=== PATIENT | female | born 1930 | race Asian ===

== ENCOUNTER 2016-12-13 12:52 | Inpatient (IN) | payer MEDICARE, BC ==
[~2016-12-13] VITALS: Ht 144.8 cm; Wt 56.0 kg
[~2016-12-13 12:52] MED LIST: AMLO-147 PO; CLC1500T PO; LOSA50TA6 PO; OMEP20CA16 PO
[2016-12-13] MEDS ORDERED: ASPI-664 PO (14:12)
[2016-12-13] MEDS ORDERED: CRES10 PO (14:12)
[2016-12-13] MEDS ORDERED: ATOR40TA68 PO (14:13)
[2016-12-13] MEDS ORDERED: CLC1500T PO (14:14)
[2016-12-13] MEDS ORDERED: SODIUM CHLORIDE 0.9% 1L BAG IV* STA (15:09)
[2016-12-13] MEDS ORDERED: CEFTRIAXONE 1 GM/50 ML (PMX) 50 ML IVPB STA (15:09)
[2016-12-13] MEDS ORDERED: ONDANSETRON 4 MG INJ IV STA (15:18)
[2016-12-13] MEDS ORDERED: morphine 4 MG/ML VIAL IV STA (15:18)
--- NOTE | 2016-12-13 15:18 | ERA ---
ER Documentation Chief Complaint Date/Time DATE: 12/13/16 TIME: 15:16 Chief Complaint lower back pain x 1 week , rt shoulder pain , rt leg pain , chills HPI Patient is an 86-year-old female who presents with a week and a half of right sided back pain gradual onset, constant, moderate and worsening over time. Patient was initially prescribed Tylenol by her PMD, but the pain did not improve. The pain spread to her upper back. She was then prescribed tramadol, but this also did not cause any improvement. Patient denies fevers, dysuria, hematuria, abdominal pain, vomiting. Patient reports mild nonproductive cough. No chest pain or shortness of breath. Patient denies trauma. Patient states that pain also radiates to the right leg. She denies leg numbness or weakness. ROS All systems reviewed and are negative except as per history of present illness. Medications Home Meds Reported Medications Calcium Carbonate* (Caltrate-600*) 600 MG Calcium Tab, 600 MG PO DAILY, TAB (1500 mg Calcium Carbonate) 12/13/16 Atorvastatin* (Atorvastatin*) 40 Mg Tablet, 40 MG PO QHS, #30 TAB 12/13/16 Aspirin (Low Dose Aspirin) 81 Mg Tablet.dr, 81 MG PO DAILY, #30 TAB 12/13/16 Omeprazole* (Omeprazole*) 20 Mg Capsule.dr, 20 MG PO BID, #60 CAP 11/06/15 Losartan Potassium* (Losartan Potassium*) 50 Mg Tablet, 50 MG PO DAILY, TAB 11/06/15 Amlodipine Besylate* (Amlodipine Besylate*) 10 Mg Tablet, 10 MG PO DAILY, #30 TAB 11/06/15 Discontinued Reported Medications Rosuvastatin Calcium* (Crestor*) 10 Mg Tablet, 10 MG PO QHS, #30 TAB 12/13/16 Calcium Carbonate* (Caltrate-600*) 600 MG Calcium Tab, 600 MG PO DAILY, TAB (1500 mg Calcium Carbonate) 11/06/15 Allergies Allergies: Coded Allergies: No Known Allergy (Verified , 12/13/16) PMhx/Soc Past medical history: Prediabetes, hypertension, hyperlipidemia, osteoporosis Past surgical history: Bilateral leg ORIF Social history: Denies tobacco or alcohol per History of Surgery: Yes (ORIF x 2) Anesthesia Reaction: No Hx Neurological Disorder: No Hx Respiratory Disorders: No Hx Cardiac Disorders: Yes (HTN) Hx Psychiatric Problems: No Hx Miscellaneous Medical Probl: Yes (DM) Hx Alcohol Use: No Hx Substance Use: No Hx Tobacco Use: No Smoking Status: Never smoker FmHx Family History: No coronary disease, No diabetes Physical Exam Vitals Vital Signs Date Time Temp Pulse Resp B/P Pulse Ox O2 Delivery O2 Flow Rate FiO2 12/13/16 19:00 87 18 112/50 93 Nasal Cannula 2.0 12/13/16 17:32 78 23 114/54 97 Nasal Cannula 2.0 12/13/16 15:57 102.5 91 26 110/74 97 Nasal Cannula 2.0 12/13/16 15:00 Nasal Cannula 2 12/13/16 13:56 105 18 139/58 92 Room Air 12/13/16 12:56 103.1 109 18 155/67 97 Physical Exam Const: Alert, appears in moderate pain Head: Atraumatic Eyes: Normal Conjunctiva, no pallor, no icterus ENT: Normal External Ears, Nose and Mouth. Neck: Full range of motion..~ No meningismus., No JVD Resp: Clear to auscultation bilaterally, no wheezes, no rales Cardio: Regular rate and rhythm, no murmurs Abd: Soft, tender in the right lower quadrant, no rebound, no guarding non distended. Normal bowel sounds Skin: No petechiae or rashes Back: No midline or CVA tenderness, right paraspinal tenderness in the low thoracic and high lumbar region. Ext: No cyanosis, or edema Neur: Awake and alert, cranial nerves II through XII intact bilaterally, patient moves and feels 4 extremities appropriately. Psych: Normal Mood and Affect Result Diagram: 12/13/16 1500 12/13/16 1500 Results 24 hrs Laboratory Tests Test 12/13/16 15:00 12/13/16 15:15 12/13/16 17:15 12/13/16 19:12 White Blood Count 9.810^3/ul Red Blood Count 3.8910^6/ul Hemoglobin 11.5g/dl Hematocrit 34.8% Mean Corpuscular Volume 89.5fl Mean Corpuscular Hemoglobin 29.6pg Mean Corpuscular Hemoglobin Concent 33.0g/dl Red Cell Distribution Width 11.9% Platelet Count 48309^3/UL Mean Platelet Volume 8.8fl Neutrophils % 74.4% Lymphocytes % 12.0% Monocytes % 12.3% Eosinophils % 0.1% Basophils % 0.3% Nucleated Red Blood Cells % 0.0/100WBC Neutrophils # 7.310^3/ul Lymphocytes # 1.210^3/ul Monocytes # 1.210^3/ul Eosinophils # 0.010^3/ul Basophils # 0.010^3/ul Nucleated Red Blood Cells # 0.010^3/ul Prothrombin Time 13.6Sec Prothrombin Time Ratio 1.1 INR International Normalized Ratio 1.04 Activated Partial Thromboplast Time 43.7Sec Urine Color YELLOW Urine Clarity CLEAR Urine pH 6.0 Urine Specific [place] 1.015 Urine Ketones NEGATIVE Urine Nitrite NEGATIVE Urine Bilirubin NEGATIVE Urine Urobilinogen 0.2 E.U./dL Urine Leukocyte Esterase TRACE Urine Microscopic RBC 2-5/HPF Urine Microscopic WBC 0-2/HPF Urine Squamous Epithelial Cells FEW Urine Bacteria FEW Urine Hemoglobin 1+ Urine Glucose NEGATIVE% Urine Total Protein TRACE Sodium Level 130mmol/L Potassium Level 4.7mmol/L Chloride Level 96mmol/L Carbon Dioxide Level 26mmol/L Anion Gap 13 Blood Urea Nitrogen 12mg/dl Creatinine 0.83mg/dl Glucose Level 143mg/dl Calcium Level 8.9mg/dl Total Bilirubin 0.2mg/dl Direct Bilirubin 0.00mg/dl Indirect Bilirubin 0.2mg/dl Aspartate Amino Transf (AST/SGOT) 69IU/L Alanine Aminotransferase (ALT/SGPT) 102IU/L Alkaline Phosphatase 282IU/L Troponin I < 0.012ng/ml Total Protein 7.4g/dl Albumin 3.7g/dl Globulin 3.70g/dl Albumin/Globulin Ratio 1.00 Lactic Acid Level 3.5mmol/L 1.1mmol/L 0.5mmol/L Current Medications Medications (Trade) Dose Ordered Sig/Selena Route PRN Reason Start Time Stop Time Status Last Admin Dose Admin Sodium Chloride 1740 ml 1,740 ml BOLUS OVER 2 HOURS STAT IV* 12/13/16 15:09 12/13/16 15:11 DC 12/13/16 15:48 Ceftriaxone Sodium (Rocephin) 50 ml @ 100 mls/hr ONCE STAT IVPB 12/13/16 15:09 12/13/16 15:38 DC 12/13/16 15:48 Morphine Sulfate (morphine) 4 mg ONCE STAT IV 5/13/17 15:18 12/13/16 15:19 DC 12/13/16 15:48 Ondansetron HCl (Zofran Inj) 4 mg ONCE STAT IV 12/13/16 15:18 12/13/16 15:19 DC 12/13/16 15:48 Acetaminophen (Tylenol Tab) 650 mg ONCE ONCE PO 12/13/16 16:00 12/13/16 16:01 DC 12/13/16 16:05 IV Flush 10 ml 10 ml STK-MED ONCE .ROUTE 12/13/16 17:10 12/13/16 17:11 DC Sodium Chloride (NS) 100 ml @ ud STK-MED ONCE .ROUTE 12/13/16 17:10 12/13/16 17:11 DC Iohexol (Omnipaque 300mg/ ml) 150 ml STK-MED ONCE .ROUTE 12/13/16 17:10 12/13/16 17:11 DC IV Flush 10 ml 10 ml STK-MED ONCE .ROUTE 12/13/16 17:20 12/13/16 17:21 DC 12/13/16 17:24 Sodium Chloride (NS) 100 ml @ ud STK-MED ONCE .ROUTE 12/13/16 17:20 12/13/16 17:21 DC 12/13/16 17:25 Iodixanol (Visipaque Locm) 100 ml STK-MED ONCE .ROUTE 12/13/16 17:20 12/13/16 17:21 DC 12/13/16 17:25 Vancomycin HCl (Vanco Iv Per Pharmacy) VANCOMYCIN PER PHARMACY PER PROTOCOL XX 12/13/16 19:30 Ondansetron HCl (Zofran Inj) 4 mg ER BRIDGE PRN IV NAUSEA AND/OR VOMITING 12/13/16 19:30 12/14/16 19:29 Acetaminophen 650 mg 650 mg ER BRIDGE PRN PO MILD PAIN/FEVER 12/13/16 19:30 12/14/16 19:29 Vancomycin HCl (Vancocin) 250 ml @ 125 mls/hr ONCE IVPB 12/13/16 20:00 12/13/16 21:59 Procedures/MDM EKG read by me: Time 1538, rate 97 Rhythm: Normal sinus [place]: Normal Intervals: Normal ST-T waves: no ischemic changes Ectopy: No Q-waves: No Impression: No evidence of ischemia or arrhythmia MDM: Patient is an 86-year-old female who presents with high fever to 103.1. Symptom [place], she reports 1-1/2 weeks of right-sided low back pain that is now extending up to her upper back and radiates down into her right leg. There is no pain with ranging of her right hip, no signs of soft tissue infection or shingles. She has no neurological deficit or symptoms in the right leg. A CT scan of the abdomen and pelvis shows no evidence of intra-abdominal infection, and shows incidental finding of left-sided ovarian mass, associated with the ovarian vein. UA is negative for UTI, chest x-ray shows no pneumonia. I have low suspicion for spinal abscess. The patient's pain is significantly improved on reassessment. Patient has no heart murmur. There are no meningeal signs. There are no significant acute symptoms to suggest an infectious source, but lactic acid is elevated, so I will admit the patient for further septic workup. The patient was given IV antibiotics, and blood and urine cultures were sent. The patient's lactic acid improved with fluids. I discussed the case with Dr. Hernandez, who will admit the patient. Departure Diagnosis: Primary Impression: Sepsis Qualified Code: A41.9 - Sepsis, due to unspecified organism Additional Impressions: Back pain Qualified Code: M54.41 - Chronic right-sided low back pain with right-sided sciatica Ovarian mass, left Condition: Stable SOCO PEDROZA MD December 13, 2016 15:18
[2016-12-13 15:27] LABS: ADD SCAN DIFF NO
[2016-12-13 15:31] LABS: BASOPHILS % 0.3 % (0.0-2.0); EOSINOPHILS % 0.1 % (0.0-7.0); HEMATOCRIT 34.8 % (37.0-47.0); HEMOGLOBIN 11.5 g/dl (12.0-16.0); LYMPHOCYTES # 1.2 10^3/ul (0.8-2.9); MEAN CORPUSCULAR HEMOGLOBIN 29.6 pg (29.0-33.0); MEAN CORPUSCULAR VOLUME 89.5 fl (82.0-101.0); MEAN PLATELET VOLUME 8.8 fl (7.4-10.4); MONOCYTE # 1.2 10^3/ul (0.3-0.9); MONOCYTES % 12.3 % (0.0-11.0); NEUTROPHIL # 7.3 10^3/ul (1.6-7.5); NEUTROPHILS % 74.4 % (39.0-77.0); PLATELET COUNT 301 10^3/UL (140-415); RED BLOOD COUNT 3.89 10^6/ul (4.20-5.40); RED CELL DISTRIBUTION WIDTH 11.9 % (11.5-14.5); WHITE BLOOD COUNT 9.8 10^3/ul (4.8-10.8)
[2016-12-13 15:37] LABS: ADD UMIC YES; URINE BILIRUBIN (Dip) NEGATIVE (NEGATIVE); URINE BLOOD (Dip) 1+ (NEGATIVE); URINE COLOR YELLOW (YELLOW); URINE GLUCOSE (Dip) NEGATIVE (NEGATIVE); URINE KETONES (Dip) NEGATIVE (NEGATIVE); URINE LEUKOCYTE ESTERASE (Dip) TRACE (NEGATIVE); URINE NITRITE (Dip) NEGATIVE (NEGATIVE); URINE TOTAL PROTEIN (Dip) TRACE (NEGATIVE); URINE UROBILINOGEN (Dip) 0.2 E.U./dL (0.1-1.0)
[2016-12-13 15:45] LABS: BACTERIA,URINE FEW; SQUAMOUS EPITHELIAL CELL,UR FEW
--- NOTE | 2016-12-13 15:47 | RADRPT ---
PROCEDURE: XR Chest. CLINICAL INDICATION: Sepsis TECHNIQUE: Single frontal chest x-ray. COMPARISON: 11/09/2015 FINDINGS: No acute infiltrate, pleural effusion or pneumothorax is identified. Cardiomediastinal silhouette i s within normal limits. Aortic atherosclerotic calcification is noted. The osseous structures are remarkable for degenerative spondylosis of the spine. IMPRESSION: 1. No evidence of acute cardiopulmonary process. 2. Aortic atherosclerosis. RPTAT: QQ .Kofi Laws MD, MD Date Time Electronically viewed and signed by .Kofi Laws MD, MD on 12/13/2016 15:47 .R/
[2016-12-13 15:56] LABS: INR 1.04; PROTIME 13.6 Sec (12.2-14.2); PT RATIO 1.1
[2016-12-13 15:57] LABS: PARTIAL THROMBOPLASTIN TIME 43.7 Sec (25.0-35.0)
[2016-12-13 15:59] LABS: ALANINE AMINOTRANSFERASE 102 IU/L (13-69); ALBUMIN 3.7 g/dl (3.3-4.9); ALKALINE PHOSPHATASE 282 IU/L (42-121); ANION GAP 13 (8-16); ASPARTATE AMINO TRANSFERASE 69 IU/L (15-46); BILIRUBIN,INDIRECT 0.2 mg/dl (0-1.1); BILIRUBIN,TOTAL 0.2 mg/dl (0.2-1.3); BLOOD UREA NITROGEN 12 mg/dl (7-20); CALCIUM 8.9 mg/dl (8.4-10.2); CARBON DIOXIDE 26 mmol/L (21-31); CHLORIDE 96 mmol/L (97-110); CREATININE 0.83 mg/dl (0.44-1.00); GLUCOSE 143 mg/dl (70-220); POTASSIUM 4.7 mmol/L (3.5-5.1); SODIUM 130 mmol/L (135-144); TOTAL PROTEIN 7.4 g/dl (6.1-8.1)
[2016-12-13] MEDS ORDERED: ACETAMINOPHEN 325 MG TAB PO ONE (16:00)
[2016-12-13 16:12] LABS: TROPONIN-I < 0.012 ng/ml (0.00-0.12)
[2016-12-13] MEDS ORDERED: IOHEXOL 300MG/ML 150 ML BTL ONE (17:10)
[2016-12-13] MEDS ORDERED: SOD CHLORIDE 0.9% 100 ML ONE ×2 (17:10→17:20)
[2016-12-13] MEDS ORDERED: IODIXANOL LOCM 100 ML BTL ONE (17:20)
--- NOTE | 2016-12-13 17:45 | RADRPT ---
PROCEDURE: CT Abdomen and Pelvis with contrast. CLINICAL INDICATION: Back and abdominal pain, sepsis TECHNIQUE: CT of the abdomen and pelvis was performed on a multi-detector scanner following the un complicated IV administration of 100 cc of Omnipaque 300. Coronal and sagittal images were reformat kinsey from the axial data set. One or more of the following dose reduction techniques were used: auto mated exposure control, adjustment of the mA and/or kV according to patient size, use of iterative reconstruction technique. CTDI = 6.32 mGy. DLP = 325.22 mGy-cm. COMPARISON: MRA abdomen, 01/15/2011 FINDINGS: CT abdomen: Trace right pleural fluid and mild bibasilar atelectasis are noted. There is stable mild cardiomega ly, without pericardial effusion. Coronary arterial calcifications are noted. Multiple benign hepa tic cysts are identified measuring up to 11 cm, similar in appearance to prior MRI. Gallbladder is surgically absent. Biliary tree, pancreas, spleen and adrenal glands are unremarkable. Bilateral b enign renal cysts are identified measuring up to 5.7 cm on the right, also grossly stable over time. 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 Nonobstructive left renal calculus is noted, without ureterolithiasis or obstructive uropathy . The stomach is grossly unremarkable. There is no abdominal aortic aneurysm or dissection. Aortic vascular calcifications are present. T here is no retroperitoneal lymphadenopathy. The max hepatis region is clear. Fat-containing umbi lical hernia is noted, without incarceration. CT pelvis: No bowel obstruction, free intraperitoneal air or abscess is identified. Scattered colonic divertic nano are seen without diverticulitis. The appendix is well visualized and normal. There is no colit is. 4.7 cm heterogeneously enhancing mass is identified along the approximate course of the left ov fariba vein (3-101), previously measuring 2.1 cm. Urinary bladder is grossly unremarkable. No pelvic free fluid or lymphadenopathy is identified. The surrounding osseous structures are remarkable for degenerative spondylosis of the spine. No ost eolytic or osteoblastic lesion is detected. IMPRESSION: 1. Heterogeneously enhancing 4.7 cm mass is seen along the approximate course of the left ovarian v ein, significantly increased in size when compared to the prior MRI from 2010, concerning for neopla sm. Consider surgical consultation. 2. There is stable mild cardiomegaly. Coronary arterial and aortoiliac atherosclerotic calcificati ons are present. 3. Multiple benign renal and hepatic cysts are identified measuring up to 11 cm in the liver, simil ar in appearance to the prior MRI. 4. Bilateral benign renal angiomyolipomas are also again noted, as above, and also unchanged. 5. Gallbladder is surgically absent. 6. Nonobstructive left renal calculus is seen, without ureterolithiasis or obstructive uropathy. 7. Fat-containing umbilical hernia is noted, without incarceration. 8. There is trace right pleural fluid and mild bibasilar atelectasis. RPTAT: QQ .Kofi Laws MD, MD Date Time Electronically viewed and signed by .Kofi Laws MD, on 12/13/2016 17:44 .R/
[2016-12-13] MEDS ORDERED: VANCOMYCIN IV PER PHARMACY XX SCH (19:30)
[2016-12-13] MEDS ORDERED: ACETAMINOPHEN 325 MG TAB PO PRN (19:30)
[2016-12-13] MEDS ORDERED: ONDANSETRON 4 MG INJ IV PRN (19:30)
[2016-12-13 20:00] VITALS: BP 130/60; RESP 20
[2016-12-13] MEDS ORDERED: VANCOMYCIN 1 GM in NS 250 ML IVPB SCH (20:00)
[2016-12-13 20:14] VITALS: TEMP 99.9
[2016-12-13 20:35] VITALS: PULSE 97
[2016-12-13 21:30] VITALS: Ht 144.8 cm; Wt 56.0 kg
[2016-12-14] VITALS (12 sets, daily range): BP systolic 101–135; BP diastolic 52–81; PULSE 76–89; RESP 17–20
[2016-12-14] MEDS ORDERED: VANCOMYCIN IV PER PHARMACY XX SCH (09:00)
[2016-12-14] MEDS: ASPIRIN (EC) 81 MG TAB PO SCH (09:31)
[2016-12-14] MEDS: AMLODIPINE 10 MG TAB PO SCH (09:32)
[2016-12-14] MEDS: LOSARTAN 50 MG TAB PO SCH (09:32)
[2016-12-14] MEDS: CEFTRIAXONE 1 GM/50 ML (PMX) 50 ML IVPB SCH (10:25)
[2016-12-14 10:27] LABS: ADD SCAN DIFF NO
[2016-12-14 10:30] LABS: BASOPHILS % 0.3 % (0.0-2.0); EOSINOPHILS % 0.2 % (0.0-7.0); HEMATOCRIT 33.9 % (37.0-47.0); HEMOGLOBIN 11.2 g/dl (12.0-16.0); LYMPHOCYTES # 1.2 10^3/ul (0.8-2.9); LYMPHOCYTES % 12.6 % (15.0-51.0); MEAN CORPUSCULAR HEMOGLOBIN 29.9 pg (29.0-33.0); MEAN CORPUSCULAR VOLUME 90.4 fl (82.0-101.0); MEAN PLATELET VOLUME 8.9 fl (7.4-10.4); MONOCYTE # 1.2 10^3/ul (0.3-0.9); MONOCYTES % 12.9 % (0.0-11.0); NEUTROPHIL # 6.9 10^3/ul (1.6-7.5); NEUTROPHILS % 73.4 % (39.0-77.0); PLATELET COUNT 285 10^3/UL (140-415); RED BLOOD COUNT 3.75 10^6/ul (4.20-5.40); RED CELL DISTRIBUTION WIDTH 11.9 % (11.5-14.5); WHITE BLOOD COUNT 9.4 10^3/ul (4.8-10.8)
[2016-12-14 10:44] LABS: ALBUMIN 3.4 g/dl (3.3-4.9); POTASSIUM 4.9 mmol/L (3.5-5.1)
[2016-12-14 10:46] LABS: CREATININE 0.83 mg/dl (0.44-1.00)
[2016-12-14 10:47] LABS: ALBUMIN/GLOBULIN RATIO 0.89; BILIRUBIN,INDIRECT 0.4 mg/dl (0-1.1); BILIRUBIN,TOTAL 0.4 mg/dl (0.2-1.3); TOTAL PROTEIN 7.2 g/dl (6.1-8.1)
[2016-12-14 10:48] LABS: CALCIUM 8.7 mg/dl (8.4-10.2)
[2016-12-14] MEDS: VANCOMYCIN 750 MG in SOD CHLORIDE 0.9% 150 ML IVPB SCH (11:24)
[2016-12-14] MEDS: ACETAMINOPHEN 325 MG TAB PO PRN (12:09)
[2016-12-14] MEDS ORDERED: ONDANSETRON 4 MG INJ IV PRN (12:30)
[2016-12-14] MEDS ORDERED: SOD CHLORIDE 0.9% 1,000 ML IV ONE (13:30)
[2016-12-14] MEDS: ALBUTEROL 0.083% (NEB) 2.5 MG/3 ML AMP HHN SCH ×2 (14:00→20:01)
[2016-12-14] MEDS: AZITHROMYCIN 500MG/NS (PMX) 250 ML IVPB SCH (14:30)
[2016-12-14] MEDS: HYDROCODONE/APAP (5/325) TAB PO PRN (17:35)
--- NOTE | 2016-12-14 18:01 | HP ---
DATE OF ADMISSION: 12/13/2016 CHIEF COMPLAINT: Back pain from right shoulder down to the low back for 3 days. HISTORY OF PRESENT ILLNESS: The patient is an 86-year-old German female with a history of chronic episodic low back pain which she has had for approximately 8 days. Initially treated with Tylenol, which was not beneficial subsequently the pain came from the right shoulder down to low back and th e patient was begun on tramadol without much benefit. The patient had persistent pain and so she pr esented to the ER. In the ER, she was noted to be febrile to 103. She has had some mild chronic co ugh which is nonproductive. Denied any chest pain, shortness of breath, sore throat, congestion, rh inorrhea. Denies any ill contacts. She has had some muscle aches as noted above, the patient denie d any diarrhea or urinary symptoms in the ER. The patient had abdominal CT scan which showed a mass in the left pelvis, but no obvious source of infection. The patient was given vancomycin and Rocep hin and admitted for further management. PAST MEDICAL HISTORY: Hypertension, hyperlipidemia, osteoarthritis, sciatica, gastric ulcer or cere brovascular disease, ischemic colitis of prediabetes, GERD, [place] esophagus. OPERATIONS: Laparoscopic cholecystectomy, cataract, right femur fracture, left hip fracture. MEDICATIONS: 1. Lipitor 40 mg daily. 2. Norvasc 10 mg daily. 3. Losartan 50 mg daily. 4. Metformin 500 mg daily. 5. Omeprazole 20 mg daily. ALLERGIES: PATIENT HAS NO KNOWN DRUG ALLERGIES. SOCIAL HISTORY: The patient denies any tobacco or alcohol use. She is , retired medical sec retary. FAMILY HISTORY: The patient's father at 65 from kidney disease. Mother at 92 from natura l causes. The patient has a sister with dementia. The patient had 4 daughters, one was stillbirth, the other 3 are alive and well, and a son who is alive and well. REVIEW OF SYSTEMS: GENERAL: The patient denies any fever until noted in the ER. He denies any other general complaint s. HEENT: The patient denies any congestion, rhinorrhea, sore throat, headache, or other HEENT complai nts. RESPIRATORY: The patient with a mild chronic cough occasionally productive, as noted in the HPI. N o wheeze, no shortness of breath or other respiratory complaints. CARDIOVASCULAR: The patient denies any chest pains, palpitations, dizziness, or other cardiovascula r symptoms. GASTROINTESTINAL: The patient denies any abdominal pain, nausea, vomiting, bright red blood per rec rogelio, melena, or other GI symptoms. GENITOURINARY: The patient denies any dysuria, frequency, or other symptoms. NEUROLOGIC: The patient denies any numbness, tingling, weakness, or other focal neurologic symptoms . PHYSICAL EXAMINATION: VITAL SIGNS: Temperature 101.3, pulse 83, blood pressure 104/53, pulse ox 98%. GENERAL APPEARANCE: Mildly ill appearing German female in no acute distress. HEENT: Normocephalic, atraumatic. Sclerae anicteric. Oropharynx is clear. NECK: Supple, no adenopathy, no thyromegaly, no bruits. LUNGS: There are some crackles in the right base. CARDIAC: Exam is regular rate and rhythm. ABDOMEN: Bowel sounds are present. Abdomen is soft, nontender, nondistended. EXTREMITIES: Without cyanosis, clubbing, or edema. NEUROLOGIC: The patient is alert and oriented x3 with no focal neurologic findings. DATA: On admission, white count 9.8, hemoglobin 11.5, hematocrit 34.8, platelets 301. Sodium 130, potassium 4.7, chloride 96, bicarbonate 26, BUN 12, creatinine 0.83, glucose 143. AST 69, ALT 102, alkaline phosphatase 282. Lactic acid initially 3.5, decreased to 1.1, then 0.5, troponin less than 0.012. INR 1.04, PTT 43.7. EKG: Sinus at 97 with no acute changes. Chest x-ray: No acute disease. UA specific gravity is 1.015, trace leukocyte esterase, 2 to 5 RBCs , 0 to 2 WBCs, few bacteria, abdominal pelvic CT enhancing 4.7 cm lesion in the course of the left o varian vein. IMPRESSION: 1. Fever/sepsis unclear source, possibly pulmonary patient on Rocephin and vancomycin. Will add az ithromycin and respiratory treatment. 2. Back pain. Patient with history of chronic back pain, possibly related to upper back pain, poss ibly related to pulmonary source. 3. Pelvic mass. Patient with an enlarging left, possibly ovarian mass. 4. Hypertension. 5. Prediabetes. PLAN: Patient admitted to med/surg. Will continue careful hydration, add azithromycin and continue Rocephin and vancomycin, and respiratory treatments, [place] p.r.n. for pain. Repeat chest x-ray. M onitor labs. MANAGER [employer]POR[employer] RESPONSIBILITY consultation, we will try to arrange tomorrow and monitor LFTs. Dictated By: TERRI RODRIGUEZ/CONCEPCION Conf#: [id number] DID#: [id number]
[2016-12-14] MEDS: ATORVASTATIN 40 MG TAB PO SCH (20:32)
[2016-12-15] VITALS (13 sets, daily range): BP systolic 102–140; BP diastolic 51–65; PULSE 75–92; RESP 18–20
[2016-12-15 07:45] LABS: ADD SCAN DIFF NO
[2016-12-15 07:50] LABS: BASOPHILS % 0.5 % (0.0-2.0); EOSINOPHILS % 0.5 % (0.0-7.0); HEMATOCRIT 29.5 % (37.0-47.0); HEMOGLOBIN 9.7 g/dl (12.0-16.0); LYMPHOCYTES # 0.7 10^3/ul (0.8-2.9); LYMPHOCYTES % 9.5 % (15.0-51.0); MEAN CORPUSCULAR HEMOGLOBIN 29.1 pg (29.0-33.0); MEAN CORPUSCULAR HGB CONC 32.9 g/dl (32.0-37.0); MEAN CORPUSCULAR VOLUME 88.6 fl (82.0-101.0); MEAN PLATELET VOLUME 8.8 fl (7.4-10.4); MONOCYTE # 0.9 10^3/ul (0.3-0.9); MONOCYTES % 12.6 % (0.0-11.0); NEUTROPHIL # 5.6 10^3/ul (1.6-7.5); NEUTROPHILS % 76.2 % (39.0-77.0); PLATELET COUNT 267 10^3/UL (140-415); RED BLOOD COUNT 3.33 10^6/ul (4.20-5.40); RED CELL DISTRIBUTION WIDTH 11.8 % (11.5-14.5); WHITE BLOOD COUNT 7.4 10^3/ul (4.8-10.8)
[2016-12-15] MEDS: ALBUTEROL 0.083% (NEB) 2.5 MG/3 ML AMP HHN SCH ×4 (08:01→20:14)
[2016-12-15] MEDS: ACETAMINOPHEN 325 MG TAB PO PRN ×2 (08:37→16:20)
[2016-12-15] MEDS: AMLODIPINE 10 MG TAB PO SCH (08:37)
[2016-12-15] MEDS: LOSARTAN 50 MG TAB PO SCH (08:38)
[2016-12-15] MEDS: ASPIRIN (EC) 81 MG TAB PO SCH (08:38)
[2016-12-15 09:41] LABS: ALBUMIN 2.8 g/dl (3.3-4.9)
[2016-12-15 09:42] LABS: POTASSIUM 3.7 mmol/L (3.5-5.1)
[2016-12-15 09:43] LABS: CREATININE 0.68 mg/dl (0.44-1.00)
[2016-12-15 09:44] LABS: ALBUMIN/GLOBULIN RATIO 0.8; BILIRUBIN,INDIRECT 0.3 mg/dl (0-1.1); BILIRUBIN,TOTAL 0.3 mg/dl (0.2-1.3); TOTAL PROTEIN 6.3 g/dl (6.1-8.1)
[2016-12-15 09:45] LABS: CALCIUM 7.8 mg/dl (8.4-10.2)
--- NOTE | 2016-12-15 10:35 | RADRPT ---
PROCEDURE: XR Chest 1 view. CLINICAL INDICATION: Shortness of breath. TECHNIQUE: AP views of the chest were obtained. COMPARISON: None. FINDINGS: The heart is large. Calcified atherosclerosis is noted in the aorta. Elevation of the right hemidia phragm is identified. Right basilar infiltrates and small right pleural effusion have mildly increa sed. The osseous structures are stable. IMPRESSION: Cardiomegaly with calcified atherosclerosis in the aorta. Mild interval increase in small right pleural effusion with associated basilar infiltrates. Stable elevation of the right hemidiaphragm. RPTAT: AA .Garfield Lew MD, MD Date Time Electronically viewed and signed by .Garfield Lew MD, MD on 12/15/2016 10:35 .P/
[2016-12-15] MEDS: HYDROCODONE/APAP (5/325) TAB PO PRN (10:49)
[2016-12-15] MEDS: CEFTRIAXONE 1 GM/50 ML (PMX) 50 ML IVPB SCH (10:49)
[2016-12-15] MEDS: VANCOMYCIN 750 MG in SOD CHLORIDE 0.9% 150 ML IVPB SCH (11:28)
[2016-12-15] MEDS ORDERED: LIDOCAINE 1% (MPF) 5 ML VIAL SC ONE (11:30)
[2016-12-15] MEDS: ENOXAPARIN 30 MG/0.3 ML SYG SC SCH (13:30)
--- NOTE | 2016-12-15 13:40 | PN ---
Date/Time of Note Date/Time of Note DATE: 12/15/16 TIME: 13:32 Assessment/Plan VTE Prophylaxis VTE Prophylaxis Intervention: LMWH Lines/Catheters IV Catheter Type (from Nrs): Saline Lock Urinary Cath still in place: No Assessment/Plan Assessment/Plan A: sepsis pneumonia UTI pelvic mass constipation elevated LFTs P: cont abx, resp rx add stool softener, laxative webfocus developer eval re pelvic mass monitor labs Subjective 24 Hr Interval Summary Free Text/Dictation Pt feeling about the same, still some cough, no cp, sob. Has had some wheezing , improved with resp rx. Pain on lat rt hip and back improved with analgesics. Some constipation, mild bloating, no abd pain. Exam/Review of Systems Vital Signs Vitals Vital Signs Date Time Temp Pulse Resp B/P Pulse Ox O2 Delivery O2 Flow Rate FiO2 12/15/16 12:05 75 12/15/16 11:57 98.2 18 102/51 92 12/15/16 08:01 21 12/15/16 01:57 2.0 12/14/16 20:01 Nasal Cannula Intake and Output 12/14/16 12/14/16 12/15/16 15:00 23:00 07:00 Intake Total 200 ml 2100 ml 350 ml Balance 200 ml 2100 ml 350 ml Exam gen- NAD, nontoxic lungs- few crackles rt base heart- regular abd- +BS, soft, nontender ext- no edema. Results Result Diagram: 12/15/1672012/15/1621 Results 24 hrs Laboratory Tests Test 12/15/16 07:21 White Blood Count 7.4 # Red Blood Count 3.33 L Hemoglobin 9.7 L Hematocrit 29.5 L Mean Corpuscular Volume 88.6 Mean Corpuscular Hemoglobin 29.1 Mean Corpuscular Hemoglobin Concent 32.9 Red Cell Distribution Width 11.8 Platelet Count 267 Mean Platelet Volume 8.8 Neutrophils % 76.2 Lymphocytes % 9.5 L Monocytes % 12.6 H Eosinophils % 0.5 Basophils % 0.5 Nucleated Red Blood Cells % 0.0 Neutrophils # 5.6 Lymphocytes # 0.7 L Monocytes # 0.9 Eosinophils # 0.0 Basophils # 0.0 Nucleated Red Blood Cells # 0.0 Sodium Level 136 Potassium Level 3.7 Chloride Level 102 Carbon Dioxide Level 22 Anion Gap 16 Blood Urea Nitrogen 9 Creatinine 0.68 Glucose Level 113 Calcium Level 7.8 L Total Bilirubin 0.3 Direct Bilirubin 0.00 Indirect Bilirubin 0.3 Aspartate Amino Transf (AST/SGOT) 58 H Alanine Aminotransferase (ALT/SGPT) 87 H Alkaline Phosphatase 247 H Total Protein 6.3 Albumin 2.8 L Globulin 3.50 H Albumin/Globulin Ratio 0.80 Medications Medications Current Medications Ceftriaxone Sodium (Rocephin) 50 ml @ 100 mls/hr Q24H IVPB Last administered on 12/15/16 10:49; Admin Dose 100 MLS/HR; Start 12/14/16 at 10:00 Amlodipine Besylate (Norvasc) 10 mg DAILY PO Last administered on 12/15/16 08: 37; Admin Dose 10 MG; Start 12/14/16 at 09:30 Aspirin (Halfprin) 81 mg DAILY PO Last administered on 12/15/16 08:38; Admin Dose 81 MG; Start 12/14/16 at 09:30 Atorvastatin Calcium (Lipitor) 40 mg QHS PO Last administered on 12/14/16 20: 32; Admin Dose 40 MG; Start 12/14/16 at 21:00 Losartan Potassium 50 mg 50 mg DAILY PO Last administered on 12/15/16 08:38; Admin Dose 50 MG; Start 12/14/16 at 09:30 Vancomycin HCl/ Sodium Chloride (Vancocin/NS) 150 ml @ 75 mls/hr Q24H IVPB Last administered on 12/15/16 11:28; Admin Dose 75 MLS/HR; Start 12/14/16 at 11 :00 Acetaminophen (Tylenol Tab) 650 mg Q6H PRN PO PAIN AND OR ELEVATED TEMP Last administered on 12/15/16 08:37; Admin Dose 650 MG; Start 12/14/16 at 12:30 Ondansetron HCl (Zofran Inj) 4 mg Q6H PRN IV NAUSEA AND/OR VOMITING; Start at 12:30 Acetaminophen/ Hydrocodone Bitart 1 tab 1 tab Q6H PRN PO SEVERE PAIN LEVEL 7- 10 Last administered on 12/15/16 10:49; Admin Dose 1 TAB; Start 12/14/16 at 13: 30 Azithromycin (Zithromax 500mg/ NS (Pmx)) 250 ml @ 250 mls/hr Q24H IVPB Last administered on 5/14/17at 14:30; Admin Dose 250 MLS/HR; Start 12/14/16 at 13:30 Miscellaneous Information (*Rx Drug Level Order Reminder*) VANCOMYCIN TROUGH AT 1000 ONCE ONCE XX ; Start 12/16/16 at 10:00; Stop 12/16/16 at 10:01 Albuterol (Proventil 0.083% (Neb)) 2.5 mg Q4HWA HHN ; Start 12/15/16 at 17:00; Status UNV TERRI MURO MD December 15, 2016 13:40
[2016-12-15] MEDS ORDERED: POLYETHYLENE GLYCOL 17 GM PACKET PO PRN (14:00)
[2016-12-15] MEDS: DOCUSATE SODIUM 100 MG CAP PO SCH (14:15)
[2016-12-15] MEDS: AZITHROMYCIN 500MG/NS (PMX) 250 ML IVPB SCH (15:20)
[2016-12-15] MEDS: ATORVASTATIN 40 MG TAB PO SCH (21:05)
[2016-12-16] VITALS (11 sets, daily range): BP systolic 98–135; BP diastolic 50–61; PULSE 80–100; RESP 18–19
[2016-12-16] MEDS: ALBUTEROL 0.083% (NEB) 2.5 MG/3 ML AMP HHN SCH ×6 (01:00→19:41)
[2016-12-16] MEDS: ACETAMINOPHEN 325 MG TAB PO PRN ×2 (01:41→17:07)
--- NOTE | 2016-12-16 04:12 | CONS ---
DATE OF ADMISSION: 12/13/2016 DATE OF CONSULTATION: HISTORY OF PRESENT ILLNESS: The patient is an 86-year-old G5, P5 admitted with a cough for the last 4 days and low back pain and fever. Initially, the patient 's white blood count was 7.4, hemoglobin 9.7, platelets 267,000. White blood count was normal. Initial chest x-ray was fairly normal. The initial CAT scan showed a little bit of right pleural fluid and mild basilar atelectasis initially and repeat chest x-ray done today shows right basilar infiltrates and a small right pleural effusion which has increased in amount a little bit. Of note, the patient also has a urinary tract infection with E. coli that seems to be sensitive to everything. Blood cultures are negative so far after 2 days, although it is still a preliminary culture. Initial ALT and AST were 90 and 63 , repeat done yesterday, repeat today is 87 and 58, slightly lower. Initial lactic acid done on the was elevated and it is now normalized. Otherwise, her labs are fairly normal. The patient was started on Rocephin for the urinary tract infection and vancomycin and azithromycin and started on breathing treatments every 6 hours. I was asked to consult as on the CAT scan, there is a heterogeneously enhancing 4.7 cm mass seen along the approximate course of the left ovarian vein; apparently this entity was seen in 2010 when it was 2.1 cm, so over 6 years it has doubled in size, but over a very long period of time. Otherwise, no other obvious sources of the discomfort she was having in the right abdomen and lower back. PAST MEDICAL HISTORY: Hypertension, hyperlipidemia, osteoarthritis, sciatica, GERD, Mansfield's esophagus. PAST SURGICAL HISTORY: Operations: Laparoscopic cholecystectomy, cataract, right femur fracture and left hip fracture. MEDICATIONS: 1. Lipitor 40 mg per day. 2. Norvasc 20 mg per day. 3. Losartan 50 per day. 4. Metformin 500 mg daily. 5. Omeprazole 20 mg daily. ALLERGIES: NO KNOWN DRUG ALLERGIES. SOCIAL HISTORY: The patient is Ethiopian and lives with her daughter, son-in- law and 3 grandchildren who are college age. The patient reports being very lonely and wishing to live in the [facility]. EXAM: Abdomen soft NT all quadrants. Pelvic exam deferred. Exam otherwise as per Dr Muro. IMPRESSION: 1. Pneumonia. 2. Urinary tract infection. 3. Hypertension. 4. Prediabetes. 5. Pelvic mass. PLAN: I will review the CT with radiology tomorrow to verify that this is an actual entity. Also on the report, there was no description whatsoever of the uterus or ovaries if they are able to be seen, so I want confirmation of what the radiologist was seeing and will take it from there. Dr. Muro ordered a CA-125 for the morning. We will proceed once I have a radiological review. Dictated By: GALINA BONE/NTS Conf#: [id number] DID#: [id number] CC: TERIR MURO MD;*EndCC* MTDD
[2016-12-16 07:25] LABS: ADD SCAN DIFF NO
[2016-12-16 07:27] LABS: BASOPHILS % 0.4 % (0.0-2.0); EOSINOPHILS # 0.1 10^3/ul (0.0-0.5); EOSINOPHILS % 1.5 % (0.0-7.0); HEMATOCRIT 30.4 % (37.0-47.0); HEMOGLOBIN 10.2 g/dl (12.0-16.0); LYMPHOCYTES # 0.8 10^3/ul (0.8-2.9); LYMPHOCYTES % 9.6 % (15.0-51.0); MEAN CORPUSCULAR HEMOGLOBIN 29.7 pg (29.0-33.0); MEAN CORPUSCULAR HGB CONC 33.6 g/dl (32.0-37.0); MEAN CORPUSCULAR VOLUME 88.4 fl (82.0-101.0); MEAN PLATELET VOLUME 8.8 fl (7.4-10.4); MONOCYTES % 12.5 % (0.0-11.0); NEUTROPHIL # 5.9 10^3/ul (1.6-7.5); PLATELET COUNT 310 10^3/UL (140-415); RED BLOOD COUNT 3.44 10^6/ul (4.20-5.40); WHITE BLOOD COUNT 7.8 10^3/ul (4.8-10.8)
[2016-12-16 08:01] LABS: ALBUMIN 2.7 g/dl (3.3-4.9)
[2016-12-16 08:02] LABS: POTASSIUM 4.1 mmol/L (3.5-5.1)
[2016-12-16 08:04] LABS: ALBUMIN/GLOBULIN RATIO 0.87; BILIRUBIN,INDIRECT 0.3 mg/dl (0-1.1); BILIRUBIN,TOTAL 0.3 mg/dl (0.2-1.3); CREATININE 0.59 mg/dl (0.44-1.00); TOTAL PROTEIN 5.8 g/dl (6.1-8.1)
[2016-12-16 08:05] LABS: CALCIUM 8.1 mg/dl (8.4-10.2)
[2016-12-16] MEDS: DOCUSATE SODIUM 100 MG CAP PO SCH (08:46)
[2016-12-16] MEDS: ASPIRIN (EC) 81 MG TAB PO SCH (08:46)
[2016-12-16] MEDS: AMLODIPINE 10 MG TAB PO SCH (08:47)
[2016-12-16] MEDS: LOSARTAN 50 MG TAB PO SCH (08:47)
[2016-12-16] MEDS: ENOXAPARIN 30 MG/0.3 ML SYG SC SCH (08:49)
[2016-12-16] MEDS: CEFTRIAXONE 1 GM/50 ML (PMX) 50 ML IVPB SCH (09:18)
[2016-12-16] MEDS: VANCOMYCIN 750 MG in SOD CHLORIDE 0.9% 150 ML IVPB SCH ×2 (11:52→22:18)
--- NOTE | 2016-12-16 13:44 | PN ---
Date/Time of Note Date/Time of Note DATE: 12/16/16 TIME: 13:37 Assessment/Plan VTE Prophylaxis VTE Prophylaxis Intervention: LMWH Lines/Catheters IV [facility]from [facility] Saline Lock Urinary Cath still in place: No Assessment/Plan Assessment/Plan A: sepsis pneumonia UTI pelvic mass elevated LFTs P: cont abx, resp rx, analgesics further eval pelvic mass per Dr. David sanz current rx monitor labs Subjective 24 Hr Interval Summary Free Text/Dictation CHEMICAL OPERATIONS SPECIALIST consult appreciated. Pt's cough, wheeze improved some but persists. No cp , sob. Had BM. Pain okay. Appetite still decreased. Exam/Review of Systems Vital Signs Vitals Vital Signs Date Time Temp Pulse Resp B/P Pulse Ox O2 Delivery O2 Flow Rate FiO2 12/16/16 12:08 88 12/16/16 11:36 99.0 18 125/60 95 12/15/16 20:11 2.0 12/15/16 20:11 Nasal Cannula 12/15/16 08:01 21 Intake and Output 12/15/16 12/15/16 12/16/16 15:00 23:00 07:00 Intake Total 200 ml 250 ml 1150 ml Balance 200 ml 250 ml 1150 ml Exam gen- NAD, nontoxic lung- min wheeze heart- regular rate and rhythm abd- +BS, soft, NT, nondistended ext- no cce. Results Result Diagram: 12/16/16 0642 12/16/16 0642 Results 24 hrs Laboratory Tests Test 12/16/16 06:40 12/16/16 06:42 12/16/16 10:16 CA 125 Antigen 31.6 White Blood Count 7.8 Red Blood Count 3.44 L Hemoglobin 10.2 L Hematocrit 30.4 L Mean Corpuscular Volume 88.4 Mean Corpuscular Hemoglobin 29.7 Mean Corpuscular Hemoglobin Concent 33.6 Red Cell Distribution Width 12.0 Platelet Count 310 Mean Platelet Volume 8.8 Neutrophils % 75.0 Lymphocytes % 9.6 L Monocytes % 12.5 H Eosinophils % 1.5 Basophils % 0.4 Nucleated Red Blood Cells % 0.0 Neutrophils # 5.9 Lymphocytes # 0.8 Monocytes # 1.0 H Eosinophils # 0.1 Basophils # 0.0 Nucleated Red Blood Cells # 0.0 Sodium Level 138 Potassium Level 4.1 Chloride Level 101 Carbon Dioxide Level 28 Anion Gap 13 Blood Urea Nitrogen 6 L Creatinine 0.59 Glucose Level 98 Calcium Level 8.1 L Total Bilirubin 0.3 Direct Bilirubin 0.00 Indirect Bilirubin 0.3 Aspartate Amino Transf (AST/SGOT) 64 H Alanine Aminotransferase (ALT/SGPT) 92 H Alkaline Phosphatase 275 H Total Protein 5.8 L Albumin 2.7 L Globulin 3.10 Albumin/Globulin Ratio 0.87 Vancomycin Level Trough < 5.0 L Medications Medications Current Medications Ceftriaxone Sodium (Rocephin) 50 ml @ 100 mls/hr Q24H IVPB Last administered on 12/16/16 09:18; Admin Dose 100 MLS/HR; Start 12/14/16 at 10:00 Amlodipine Besylate (Norvasc) 10 mg DAILY PO Last administered on 12/16/16 08: 47; Admin Dose 10 MG; Start 12/14/16 at 09:30 Aspirin (Halfprin) 81 mg DAILY PO Last administered on 12/16/16 08:46; Admin Dose 81 MG; Start 12/14/16 at 09:30 Atorvastatin Calcium (Lipitor) 40 mg QHS PO Last administered on 12/15/16 21: 05; Admin Dose 40 MG; Start 12/14/16 at 21:00 Losartan Potassium 50 mg 50 mg DAILY PO Last administered on 12/16/16 08:47; Admin Dose 50 MG; Start 12/14/16 at 09:30 Vancomycin HCl/ Sodium Chloride (Vancocin/NS) 150 ml @ 75 mls/hr Q24H IVPB Last administered on 12/16/16 11:52; Admin Dose 75 MLS/HR; Start 12/14/16 at 11 :00; Stop 12/16/16 at 15:00 Acetaminophen (Tylenol Tab) 650 mg Q6H PRN PO PAIN AND OR ELEVATED TEMP Last administered on 12/16/16 01:41; Admin Dose 650 MG; Start 12/14/16 at 12:30 Ondansetron HCl 4 mg 4 mg Q6H PRN IV NAUSEA AND/OR VOMITING; Start 12/14/16 at 12:30 Azithromycin (Zithromax 500mg/ NS (Pmx)) 250 ml @ 250 mls/hr Q24H IVPB Last administered on 12/15/16 15:20; Admin Dose 250 MLS/HR; Start 12/14/16 at 13:30 Albuterol (Proventil 0.083% (Neb)) 2.5 mg Q4HWA HHN Last administered on 20:14; Admin Dose 2.5 MG; Start 12/15/16 at 17:00 Enoxaparin Sodium (Lovenox) 30 mg DAILY SC Last administered on 12/16/16 08:49 ; Admin Dose 30 MG; Start 12/15/16 at 13:30 Acetaminophen/ Hydrocodone Bitart ([place] (5/325)) 1 tab Q4H PRN PO SEVERE PAIN LEVEL 7-10; Start 12/15/16 at 17:00 Docusate Sodium (Colace) 100 mg DAILY PO Last administered on 12/16/16 08:46; Admin Dose 100 MG; Start 12/15/16 at 14:00 Polyethylene Glycol 17 gm 17 gm DAILY PRN PO CONSTIPATION; Start 12/15/16 at 14 :00 Vancomycin HCl/ Sodium Chloride (Vancocin/NS) 150 ml @ 75 mls/hr Q12H IVPB ; Start 12/16/16 at 23:00 TERRI MURO MD December 16, 2016 13:44
[2016-12-16] MEDS: AZITHROMYCIN 500MG/NS (PMX) 250 ML IVPB SCH (14:16)
[2016-12-16] MEDS: ATORVASTATIN 40 MG TAB PO SCH (21:49)
--- NOTE | 2016-12-16 22:08 | QN ---
Documentation Comment TALENT ENGINEER consultation follow-up: 86 y.o.Irish admitted with pneumonia and a UTI and slowly improving. A CT of abdomen and pelvis was done due to longstanding lower back pain and it was noted that the pt had a 4.7 cm cystic mass noted in the left lower abdomen, just above the pelvis. It was noted, albeit smaller at 2.1 cm, in 2010. The pt does not seem to have any symptoms related to this and is unaware of any lower left abdominal pain. I reviewed the CT scan with Dr Brant La today to confirm the location which was described as being adjacent to the left ovarian vein, and it is above the pelvis. It is distinctly cystic in nature although not unilocular and there are no solid components. The uterus is seen well below this area, in the pelvis and is very small, c/w an atrophic uterus. The ovaries are not distinctly visible which is not unusual in someone this age. It is possible that this could still be ovarian in nature as there can be cellular nests of ovarian tissue left as the ovaries migrate during embryological formation. A CA-125 done today was 31 which is in the normal range (<35). Recommendations/considerations are as follows: 1) This is not something that needs to be addressed during this hospitalization as the patients pulmonary status has a greater immediate importance. Also hopefully the liver inflammation will resolve. 2) The patient's age is a consideration before any surgery would be considered as even a laparoscopic procedure involves general anesthesia with its attendant risks. 3) Despite the size there are no obvious, overwhelming signs that this is a malignancy, at this point in time although the possibility is not excluded. A more prudent course, I feel, would be to follow this patient for now with serial US's ( abdominal/pelvic) (as long as an US can visualize the area well which I think would be possible as the patient is of a normal weight)and CA-125 every 6 weeks for a few times and then going to q 3-6 months for close follow- up and proceeding to surgery if the CA-125 rises into the abnormal range and/or if the size of the cyst keeps increasing. This follow-up can be done by Dr Hernandez or she can be sent to my office. I did give her my card. If she reaches parameters that require surgical intervention then I would probably defer to a home school liaison officer oncologist in case that the source is something other than ovarian, due to its location, so that whatever it is could easily be dealt with. 4) This was all reviewed with the patient and all her questions, which were appropriate, were answered. Thank you. Please call with any questions. Dr Travis Hernandez TALENT ENGINEER TRAVIS HERNANDEZ MD December 16, 2016 22:08
[2016-12-17] VITALS (13 sets, daily range): BP systolic 101–129; BP diastolic 50–61; PULSE 68–89; RESP 18–20
[2016-12-17] MEDS: ALBUTEROL 0.083% (NEB) 2.5 MG/3 ML AMP HHN SCH ×5 (01:00→21:37)
[2016-12-17 07:51] LABS: ALBUMIN 3.1 g/dl (3.3-4.9); ALBUMIN/GLOBULIN RATIO 0.88; BILIRUBIN,INDIRECT 0.2 mg/dl (0-1.1); BILIRUBIN,TOTAL 0.2 mg/dl (0.2-1.3); CALCIUM 8.8 mg/dl (8.4-10.2); CREATININE 0.58 mg/dl (0.44-1.00); POTASSIUM 3.9 mmol/L (3.5-5.1); TOTAL PROTEIN 6.6 g/dl (6.1-8.1)
[2016-12-17] MEDS: AMLODIPINE 10 MG TAB PO SCH (08:58)
[2016-12-17] MEDS: ASPIRIN (EC) 81 MG TAB PO SCH (08:58)
[2016-12-17] MEDS: DOCUSATE SODIUM 100 MG CAP PO SCH (08:58)
[2016-12-17] MEDS: LOSARTAN 50 MG TAB PO SCH (08:59)
[2016-12-17] MEDS: ENOXAPARIN 30 MG/0.3 ML SYG SC SCH (08:59)
[2016-12-17] MEDS: CEFTRIAXONE 1 GM/50 ML (PMX) 50 ML IVPB SCH (10:14)
[2016-12-17] MEDS: VANCOMYCIN 750 MG in SOD CHLORIDE 0.9% 150 ML IVPB SCH (10:20)
--- NOTE | 2016-12-17 10:58 | PN ---
Date/Time of Note Date/Time of Note DATE: 12/17/16 TIME: 10:55 Assessment/Plan VTE Prophylaxis VTE Prophylaxis Intervention: LMWH Lines/Catheters IV Catheter Type (from Nrs): Saline Lock Urinary Cath still in place: No Assessment/Plan Assessment/Plan A: sepsis pneumonia pelvic mass UTI elevated LFTs P: d/c vanco start PT cont other rx monitor labs f/u of pelvic mass as per director ambulatory noted Subjective 24 Hr Interval Summary Free Text/Dictation Pt feeling better, cough less. Still back pain and rt lat hip pain. No cp, sob. Exam/Review of Systems Vital Signs Vitals Vital Signs Date Time Temp Pulse Resp B/P Pulse Ox O2 Delivery O2 Flow Rate FiO2 12/17/16 08:37 2.0 12/17/16 08:37 77 16 96 Nasal Cannula 12/17/16 07:46 98.6 121/59 12/15/16 08:01 21 Intake and Output 12/16/16 12/16/16 12/17/16 15:00 23:00 07:00 Intake Total 450 ml 750 ml 700 ml Balance 450 ml 750 ml 700 ml Exam gen- NAD, nontoxic lungs- sl dec bs rt base heart- regular rate and rhythm abd- +BS, soft, nontender ext- no cce. Results Result Diagram: 12/16/16 0642 12/17/16 0705 Results 24 hrs Laboratory Tests Test 12/17/16 07:05 Sodium Level 137 Potassium Level 3.9 Chloride Level 104 Carbon Dioxide Level 27 Anion Gap 10 Blood Urea Nitrogen 7 Creatinine 0.58 Glucose Level 112 Calcium Level 8.8 Total Bilirubin 0.2 Direct Bilirubin 0.00 Indirect Bilirubin 0.2 Aspartate Amino Transf (AST/SGOT) 56 H Alanine Aminotransferase (ALT/SGPT) 94 H Alkaline Phosphatase 301 H Total Protein 6.6 Albumin 3.1 L Globulin 3.50 H Albumin/Globulin Ratio 0.88 Medications Medications Current Medications Ceftriaxone Sodium (Rocephin) 50 ml @ 100 mls/hr Q24H IVPB Last administered on 12/17/16 10:14; Admin Dose 100 MLS/HR; Start 12/14/16 at 10:00 Amlodipine Besylate (Norvasc) 10 mg DAILY PO Last administered on 12/17/16 08: 58; Admin Dose 10 MG; Start 12/14/16 at 09:30 Aspirin (Halfprin) 81 mg DAILY PO Last administered on 12/17/16 08:58; Admin Dose 81 MG; Start 12/14/16 at 09:30 Atorvastatin Calcium (Lipitor) 40 mg QHS PO Last administered on 12/16/16 21: 49; Admin Dose 40 MG; Start 12/14/16 at 21:00 Losartan Potassium (Cozaar) 50 mg DAILY PO Last administered on 12/17/16 08:59 ; Admin Dose 50 MG; Start 12/14/16 at 09:30 Acetaminophen (Tylenol Tab) 650 mg Q6H PRN PO PAIN AND OR ELEVATED TEMP Last administered on 12/16/16 17:07; Admin Dose 650 MG; Start 12/14/16 at 12:30 Ondansetron HCl 4 mg 4 mg Q6H PRN IV NAUSEA AND/OR VOMITING; Start 12/14/16 at 12:30 Azithromycin (Zithromax 500mg/ NS (Pmx)) 250 ml @ 250 mls/hr Q24H IVPB Last administered on 12/16/16 14:16; Admin Dose 250 MLS/HR; Start 12/14/16 at 13:30 Albuterol (Proventil 0.083% (Neb)) 2.5 mg Q4HWA HHN Last administered on 08:37; Admin Dose 2.5 MG; Start 12/15/16 at 17:00 Enoxaparin Sodium (Lovenox) 30 mg DAILY SC Last administered on 12/17/16 08:59 ; Admin Dose 30 MG; Start 12/15/16 at 13:30 Acetaminophen/ Hydrocodone Bitart ([place] (5/325)) 1 tab Q4H PRN PO SEVERE PAIN LEVEL 7-10; Start 12/15/16 at 17:00 Docusate Sodium (Colace) 100 mg DAILY PO Last administered on 12/17/16 08:58; Admin Dose 100 MG; Start 12/15/16 at 14:00 Polyethylene Glycol 17 gm 17 gm DAILY PRN PO CONSTIPATION; Start 12/15/16 at 14 :00 Vancomycin HCl/ Sodium Chloride (Vancocin/NS) 150 ml @ 75 mls/hr Q12H IVPB Last administered on 12/17/16 10:20; Admin Dose 75 MLS/HR; Start 12/16/16 at 23 :00 TERRI MURO MD December 17, 2016 10:58
[2016-12-17] MEDS: AZITHROMYCIN 500MG/NS (PMX) 250 ML IVPB SCH (14:39)
[2016-12-17] MEDS: ATORVASTATIN 40 MG TAB PO SCH (21:59)
[2016-12-18] VITALS (10 sets, daily range): BP systolic 103–125; BP diastolic 54–84; PULSE 76–90; RESP 18–20
[2016-12-18] MEDS: ALBUTEROL 0.083% (NEB) 2.5 MG/3 ML AMP HHN SCH ×6 (01:00→22:23)
[2016-12-18 07:35] LABS: ADD SCAN DIFF NO
[2016-12-18 07:36] LABS: BASOPHILS % 0.4 % (0.0-2.0); EOSINOPHILS # 0.2 10^3/ul (0.0-0.5); EOSINOPHILS % 2.5 % (0.0-7.0); HEMATOCRIT 29.6 % (37.0-47.0); HEMOGLOBIN 9.8 g/dl (12.0-16.0); LYMPHOCYTES # 0.9 10^3/ul (0.8-2.9); LYMPHOCYTES % 13.1 % (15.0-51.0); MEAN CORPUSCULAR HEMOGLOBIN 29.4 pg (29.0-33.0); MEAN CORPUSCULAR HGB CONC 33.1 g/dl (32.0-37.0); MEAN CORPUSCULAR VOLUME 88.9 fl (82.0-101.0); MEAN PLATELET VOLUME 8.6 fl (7.4-10.4); MONOCYTE # 0.8 10^3/ul (0.3-0.9); MONOCYTES % 10.4 % (0.0-11.0); NEUTROPHIL # 5.2 10^3/ul (1.6-7.5); NEUTROPHILS % 72.3 % (39.0-77.0); PLATELET COUNT 368 10^3/UL (140-415); RED BLOOD COUNT 3.33 10^6/ul (4.20-5.40); RED CELL DISTRIBUTION WIDTH 12.1 % (11.5-14.5); WHITE BLOOD COUNT 7.2 10^3/ul (4.8-10.8)
[2016-12-18 08:01] LABS: POTASSIUM 3.9 mmol/L (3.5-5.1)
[2016-12-18 08:03] LABS: ALBUMIN/GLOBULIN RATIO 0.83; BILIRUBIN,INDIRECT 0.3 mg/dl (0-1.1); BILIRUBIN,TOTAL 0.3 mg/dl (0.2-1.3); CREATININE 0.64 mg/dl (0.44-1.00); TOTAL PROTEIN 6.6 g/dl (6.1-8.1)
[2016-12-18 08:04] LABS: CALCIUM 8.9 mg/dl (8.4-10.2)
[2016-12-18] MEDS: AMLODIPINE 10 MG TAB PO SCH (08:45)
[2016-12-18] MEDS: DOCUSATE SODIUM 100 MG CAP PO SCH (08:45)
[2016-12-18] MEDS: ASPIRIN (EC) 81 MG TAB PO SCH (08:45)
[2016-12-18] MEDS: LOSARTAN 50 MG TAB PO SCH (08:46)
[2016-12-18] MEDS: ENOXAPARIN 30 MG/0.3 ML SYG SC SCH (08:49)
--- NOTE | 2016-12-18 09:18 | RADRPT ---
PROCEDURE: XR Chest 1 view. CLINICAL INDICATION: Shortness of breath. TECHNIQUE: AP views of the chest were obtained. COMPARISON: December 15, 2016 FINDINGS: The heart is large. Calcified atherosclerosis is noted in the aorta. Elevation of the right hemidia phragm is identified. Scattered atelectasis is noted in the left lower lobe. Right basilar infiltr ates have decreased. Mild residual remains. Small right pleural effusion continues to be seen. The osseous structures are osteopenic, but appear intact. Degenerative changes are seen in the shoulde rs. IMPRESSION: Cardiomegaly with calcified atherosclerosis in the aorta. Elevation of the right hemidiaphragm. Interval decrease in right basilar infiltrates. Mild residual , combined with small pleural effusio n remains. Scattered atelectasis in the left lower lobe. RPTAT: AA .Garfield Lew MD, MD Date Time Electronically viewed and signed by .Garfield Lew MD, MD on 12/18/2016 09:18 .P/
[2016-12-18] MEDS: CEFTRIAXONE 1 GM/50 ML (PMX) 50 ML IVPB SCH (10:19)
[2016-12-18] MEDS: AZITHROMYCIN 500MG/NS (PMX) 250 ML IVPB SCH (12:43)
[2016-12-18] MEDS: HYDROCODONE/APAP (5/325) TAB PO PRN ×2 (12:43→19:37)
--- NOTE | 2016-12-18 13:09 | PN ---
Date/Time of Note Date/Time of Note DATE: 12/18/16 TIME: 13:02 Assessment/Plan VTE Prophylaxis VTE Prophylaxis Intervention: LMWH Lines/Catheters IV Catheter Type (from Nrs): Saline Lock Urinary Cath still in place: No Assessment/Plan Assessment/Plan A: sepsis- resolved pneumonia improving bronchospasm UTI rt hip pain- prob bursitis elev LFTs P: okay to med surg pt/daughter considering placement [facility] cont current rx cont abx, resp rx add advair cont PT abd/pelvic u/s, CA125 q6wkx2 then q3-6m per director of state Subjective 24 Hr Interval Summary Free Text/Dictation Cough improving slowly, still occ wheeze. No cp, sob. Rt hip pain. Seen by PT this am. Exam/Review of Systems Vital Signs Vitals Vital Signs Date Time Temp Pulse Resp B/P Pulse Ox O2 Delivery O2 Flow Rate FiO2 12/18/16 12:46 76 12/18/16 11:43 98.4 20 115/56 98 12/18/16 10:24 2.0 12/17/16 21:40 Nasal Cannula 12/15/16 08:01 21 Intake and Output 12/17/16 12/17/16 12/18/16 15:00 23:00 07:00 Intake Total 960 ml 800 ml Output Total 1200 ml Balance -240 ml 800 ml Exam gen- nad, nontoxic lungs- min exp wheeze heart- regular abd- +BS, soft, nontender ext- no cce. Tender to palp over rt greater trochanter Results Result Diagram: 12/18/16 0650 12/18/16 0650 Results 24 hrs Laboratory Tests Test 12/18/16 06:50 White Blood Count 7.2 Red Blood Count 3.33 L Hemoglobin 9.8 L Hematocrit 29.6 L Mean Corpuscular Volume 88.9 Mean Corpuscular Hemoglobin 29.4 Mean Corpuscular Hemoglobin Concent 33.1 Red Cell Distribution Width 12.1 Platelet Count 368 Mean Platelet Volume 8.6 Neutrophils % 72.3 Lymphocytes % 13.1 L Monocytes % 10.4 Eosinophils % 2.5 Basophils % 0.4 Nucleated Red Blood Cells % 0.0 Neutrophils # 5.2 Lymphocytes # 0.9 Monocytes # 0.8 Eosinophils # 0.2 Basophils # 0.0 Nucleated Red Blood Cells # 0.0 Sodium Level 138 Potassium Level 3.9 Chloride Level 99 Carbon Dioxide Level 27 Anion Gap 16 Blood Urea Nitrogen 9 Creatinine 0.64 Glucose Level 110 Calcium Level 8.9 Total Bilirubin 0.3 Direct Bilirubin 0.00 Indirect Bilirubin 0.3 Aspartate Amino Transf (AST/SGOT) 70 H Alanine Aminotransferase (ALT/SGPT) 103 H Alkaline Phosphatase 312 H Total Protein 6.6 Albumin 3.0 L Globulin 3.60 H Albumin/Globulin Ratio 0.83 Medications Medications Current Medications Ceftriaxone Sodium (Rocephin) 50 ml @ 100 mls/hr Q24H IVPB Last administered on 12/18/16 10:19; Admin Dose 100 MLS/HR; Start 12/14/16 at 10:00 Amlodipine Besylate (Norvasc) 10 mg DAILY PO Last administered on 12/18/16 08: 45; Admin Dose 10 MG; Start 12/14/16 at 09:30 Aspirin (Halfprin) 81 mg DAILY PO Last administered on 12/18/16 08:45; Admin Dose 81 MG; Start 12/14/16 at 09:30 Atorvastatin Calcium (Lipitor) 40 mg QHS PO Last administered on 12/17/16 21: 59; Admin Dose 40 MG; Start 12/14/16 at 21:00 Losartan Potassium (Cozaar) 50 mg DAILY PO Last administered on 12/18/16 08:46 ; Admin Dose 50 MG; Start 12/14/16 at 09:30 Acetaminophen (Tylenol Tab) 650 mg Q6H PRN PO PAIN AND OR ELEVATED TEMP Last administered on 12/16/16 17:07; Admin Dose 650 MG; Start 12/14/16 at 12:30 Ondansetron HCl 4 mg 4 mg Q6H PRN IV NAUSEA AND/OR VOMITING; Start 12/14/16 at 12:30 Azithromycin (Zithromax 500mg/ NS (Pmx)) 250 ml @ 250 mls/hr Q24H IVPB Last administered on 12/18/16 12:43; Admin Dose 250 MLS/HR; Start 12/14/16 at 13:30 Albuterol (Proventil 0.083% (Neb)) 2.5 mg Q4HWA HHN Last administered on 21:37; Admin Dose 2.5 MG; Start 12/15/16 at 17:00 Enoxaparin Sodium (Lovenox) 30 mg DAILY SC Last administered on 12/18/16 08:49 ; Admin Dose 30 MG; Start 12/15/16 at 13:30 Acetaminophen/ Hydrocodone Bitart ([place] (5/325)) 1 tab Q4H PRN PO SEVERE PAIN LEVEL 7-10 Last administered on 12/18/16 12:43; Admin Dose 1 TAB; Start at 17:00 Docusate Sodium (Colace) 100 mg DAILY PO Last administered on 12/18/16 08:45; Admin Dose 100 MG; Start 12/15/16 at 14:00 Polyethylene Glycol (Miralax) 17 gm DAILY PRN PO CONSTIPATION; Start 12/15/16 at 14:00 TERRI MURO MD December 18, 2016 13:09
[2016-12-18] MEDS: SALMETEROL/FLUTICASONE 250/50 INHA INH SCH ×2 (15:43→16:40)
[2016-12-18] MEDS: ATORVASTATIN 40 MG TAB PO SCH (21:00)
[2016-12-19] MEDS: SALMETEROL/FLUTICASONE 250/50 INHA INH SCH ×2 (00:12→09:03)
[2016-12-19] MEDS: ALBUTEROL 0.083% (NEB) 2.5 MG/3 ML AMP HHN SCH ×4 (01:00→13:29)
[2016-12-19 05:29] LABS: ADD SCAN DIFF NO
[2016-12-19 05:33] LABS: BASOPHILS % 0.5 % (0.0-2.0); EOSINOPHILS # 0.2 10^3/ul (0.0-0.5); EOSINOPHILS % 2.9 % (0.0-7.0); HEMATOCRIT 29.6 % (37.0-47.0); HEMOGLOBIN 9.9 g/dl (12.0-16.0); LYMPHOCYTES % 12.6 % (15.0-51.0); MEAN CORPUSCULAR HEMOGLOBIN 29.7 pg (29.0-33.0); MEAN CORPUSCULAR HGB CONC 33.4 g/dl (32.0-37.0); MEAN CORPUSCULAR VOLUME 88.9 fl (82.0-101.0); MEAN PLATELET VOLUME 8.6 fl (7.4-10.4); MONOCYTE # 0.8 10^3/ul (0.3-0.9); MONOCYTES % 10.8 % (0.0-11.0); NEUTROPHIL # 5.4 10^3/ul (1.6-7.5); NEUTROPHILS % 71.3 % (39.0-77.0); PLATELET COUNT 399 10^3/UL (140-415); RED BLOOD COUNT 3.33 10^6/ul (4.20-5.40); WHITE BLOOD COUNT 7.5 10^3/ul (4.8-10.8)
[2016-12-19 05:56] LABS: POTASSIUM 4.2 mmol/L (3.5-5.1)
[2016-12-19 05:58] LABS: ALBUMIN/GLOBULIN RATIO 0.83; BILIRUBIN,INDIRECT 0.1 mg/dl (0-1.1); BILIRUBIN,TOTAL 0.1 mg/dl (0.2-1.3); CREATININE 0.66 mg/dl (0.44-1.00); TOTAL PROTEIN 6.6 g/dl (6.1-8.1)
[2016-12-19 05:59] LABS: CALCIUM 9.1 mg/dl (8.4-10.2)
[2016-12-19 08:16] VITALS: BP 117/58; RESP 17
[2016-12-19] MEDS: DOCUSATE SODIUM 100 MG CAP PO SCH (09:03)
[2016-12-19] MEDS: LOSARTAN 50 MG TAB PO SCH (09:03)
[2016-12-19] MEDS: ASPIRIN (EC) 81 MG TAB PO SCH (09:03)
[2016-12-19] MEDS: AMLODIPINE 10 MG TAB PO SCH (09:03)
[2016-12-19] MEDS: ENOXAPARIN 30 MG/0.3 ML SYG SC SCH (09:08)
[2016-12-19] MEDS: CEFTRIAXONE 1 GM/50 ML (PMX) 50 ML IVPB SCH (12:21)
[2016-12-19] MEDS ORDERED: ACET325T40 PO (13:28)
[2016-12-19] MEDS ORDERED: ALBU2.5V3 HHN (13:28)
[2016-12-19] MEDS ORDERED: HYDR-3498 PO (13:28)
[2016-12-19] MEDS ORDERED: DOCU-216 PO (13:28)
[2016-12-19] MEDS ORDERED: POLY17PO6 PO (13:28)
[2016-12-19] MEDS ORDERED: ENOX30DI8 SC (13:28)
--- NOTE | 2016-12-19 13:49 | PN ---
Date/Time of Note Date/Time of Note DATE: 12/19/16 TIME: 13:14 Assessment/Plan VTE Prophylaxis VTE Prophylaxis Intervention: LMWH Lines/Catheters IV Catheter Type (from [facility]): Saline Lock Urinary Cath still in place: No Assessment/Plan Assessment/Plan A: sepsis resolved pneumonia improving bronchospasm rt hip pain elevated LFTs UTI pelvic mass P: transfer to [facility] change abx to levaquin cont resp rx cont PT f/u abd/pelvic u/s, CA 125 in 6wks x2, then q3-6m, f/u with vault custodian Subjective 24 Hr Interval Summary Free Text/Dictation Pt feeling better. Doing better with PT. Breathing improved. No cp, sob, wheeze. Pt and family agreeable to [facility], bed available. Exam/Review of Systems Vital Signs Vitals Vital Signs Date Time Temp Pulse Resp B/P Pulse Ox O2 Delivery O2 Flow Rate FiO2 12/19/16 10:03 80 20 98 Nasal Cannula 2.0 12/19/16 08:16 98.7 117/58 12/15/16 08:01 21 Intake and Output 12/18/16 12/18/16 12/19/16 15:00 23:00 07:00 Intake Total 300 ml 1000 ml 350 ml Output Total 300 ml 750 ml Balance 300 ml 700 ml -400 ml Exam gen- nad, nontoxic lungs- CTA heart- regular rate and rhythm abd- +BS, soft, nontender ext- no cce. Results Result Diagram: 12/19/16 0420 12/19/16 0420 Results 24 hrs Laboratory Tests Test 12/19/16 04:20 White Blood Count 7.5 Red Blood Count 3.33 L Hemoglobin 9.9 L Hematocrit 29.6 L Mean Corpuscular Volume 88.9 Mean Corpuscular Hemoglobin 29.7 Mean Corpuscular Hemoglobin Concent 33.4 Red Cell Distribution Width 12.0 Platelet Count 399 Mean Platelet Volume 8.6 Neutrophils % 71.3 Lymphocytes % 12.6 L Monocytes % 10.8 Eosinophils % 2.9 Basophils % 0.5 Nucleated Red Blood Cells % 0.0 Neutrophils # 5.4 Lymphocytes # 1.0 Monocytes # 0.8 Eosinophils # 0.2 Basophils # 0.0 Nucleated Red Blood Cells # 0.0 Sodium Level 138 Potassium Level 4.2 Chloride Level 97 Carbon Dioxide Level 30 Anion Gap 15 Blood Urea Nitrogen 10 Creatinine 0.66 Glucose Level 113 Calcium Level 9.1 Total Bilirubin 0.1 L Direct Bilirubin 0.00 Indirect Bilirubin 0.1 Aspartate Amino Transf (AST/SGOT) 79 H Alanine Aminotransferase (ALT/SGPT) 130 H Alkaline Phosphatase 304 H Total Protein 6.6 Albumin 3.0 L Globulin 3.60 H Albumin/Globulin Ratio 0.83 Medications Medications Current Medications Ceftriaxone Sodium (Rocephin) 50 ml @ 100 mls/hr Q24H IVPB Last administered on 12/19/16 12:21; Admin Dose 100 MLS/HR; Start 12/14/16 at 10:00 Amlodipine Besylate (Norvasc) 10 mg DAILY PO Last administered on 12/19/16 09: 03; Admin Dose 10 MG; Start 12/14/16 at 09:30 Aspirin (Halfprin) 81 mg DAILY PO Last administered on 12/19/16 09:03; Admin Dose 81 MG; Start 12/14/16 at 09:30 Atorvastatin Calcium (Lipitor) 40 mg QHS PO Last administered on 12/17/16 21: 59; Admin Dose 40 MG; Start 12/14/16 at 21:00 Losartan Potassium (Cozaar) 50 mg DAILY PO Last administered on 12/19/16 09:03 ; Admin Dose 50 MG; Start 12/14/16 at 09:30 Acetaminophen 650 mg 650 mg Q6H PRN PO PAIN AND OR ELEVATED TEMP Last administered on 12/16/16 17:07; Admin Dose 650 MG; Start 12/14/16 at 12:30 Azithromycin (Zithromax 500mg/ NS (Pmx)) 250 ml @ 250 mls/hr Q24H IVPB Last administered on 12/18/16 12:43; Admin Dose 250 MLS/HR; Start 12/14/16 at 13:30 Albuterol (Proventil 0.083% (Neb)) 2.5 mg Q4HWA HHN Last administered on 10:03; Admin Dose 2.5 MG; Start 12/15/16 at 17:00 Enoxaparin Sodium (Lovenox) 30 mg DAILY SC Last administered on 12/19/16 09:08 ; Admin Dose 30 MG; Start 12/15/16 at 13:30 Acetaminophen/ Hydrocodone Bitart ([place] (5/325)) 1 tab Q4H PRN PO SEVERE PAIN LEVEL 7-10 Last administered on 12/18/16 19:37; Admin Dose 1 TAB; Start at 17:00 Docusate Sodium (Colace) 100 mg DAILY PO Last administered on 12/19/16 09:03; Admin Dose 100 MG; Start 12/15/16 at 14:00 Polyethylene Glycol (Miralax) 17 gm DAILY PRN PO CONSTIPATION; Start 12/15/16 at 14:00 Salmeterol Xinafoate/ Fluticasone (Advair 250/50 Diskus) 1 inh BID INH Last administered on 12/19/16 09:03; Admin Dose 1 INH; Start 12/18/16 at 14:30 TERRI MURO MD December 19, 2016 13:24
[2016-12-20] MEDS ORDERED: LEVOFLOXACIN 500 MG TAB PO SCH (06:00)
--- NOTE | 2016-12-22 20:37 | DS ---
DATE OF ADMISSION: 12/13/2016 DATE OF DISCHARGE: 12/19/2016 DISCHARGE DIAGNOSES: 1. Sepsis. 2. Pneumonia. 3. Bronchospasm. 4. Urinary tract infection. 5. Pelvic mass. 6. Right hip pain. 7. Elevated LFTs. PROCEDURES: Abdominal and pelvis CT scan. CONSULTATION: [facility], Dr. Hernandez. HISTORY OF PRESENT ILLNESS: The patient is an 86-year-old [place] female with history of chronic e pisodic low back pain which she had had for approximately 8 days, initially treated with Tylenol whi ch did not help. Pain seemed to expand from right shoulder down to low back. The patient was begun on tramadol without much benefit. The patient had persistent pain, so she presented to the ER. In the ER, she was found to be afebrile to 103, some mild chronic cough which was nonproductive. John ed any chest pain, shortness of breath, sore throat, congestion, runny nose. Denied any ill contact s. The patient denies any diarrhea or urinary symptoms. The patient had an abdominal CT scan which showed a mass in the left pelvis, but no obvious source of infection. Patient was given vancomycin and Rocephin and was admitted for further management. PHYSICAL EXAMINATION ON ADMISSION: VITAL SIGNS: Notable for temperature of 101.3, pulse 83, blood pressure 104/53. Pulse ox is 98%. GENERAL APPEARANCE: Patient is mildly ill appearing but in no acute distress. LUNGS: Some crackles in the right base. CARDIAC: Regular rate and rhythm. ABDOMEN: Bowel sounds are present. Abdomen is soft, nontender, nondistended. EXTREMITIES: Without cyanosis, clubbing, or edema. DATA: Notable for white count 9.8, hemoglobin 11.5. Sodium 130, potassium 4.7, bicarb 26, BUN 12, creatinine 0.83, glucose 143, AST 69, ALT 102, alk phos 282. Lactic acid initially 3.5, decreased t o 1.1, then 0.5. Troponin was less than 0.012. EKG was sinus rhythm at 97 with no acute changes. Chest x-ray showed no acute disease. UA showed a specific gravity of 1.015, trace leukocyte esteras e, 2 to 5 RBCs, 0 to 2 white blood cells, few bacteria. Abdominal and pelvic CT scan showed an enha ncing 4.7 cm lesion in the course of the left ovarian vein. HOSPITAL COURSE: As follows: 1. Sepsis. The patient with elevated temperature, elevated lactic acid. Patient was put on approp riate antibiotics after blood and urine cultures were obtained. Blood cultures remain negative duri ng the hospitalization. The patient's fever normalized. Lactic acid also normalized with hydration . 2. Pneumonia. The patient with evidence of a right lower lobe infiltrate on repeat chest x-ray, wh ich improved on subsequent x-ray. The patient was continued on appropriate IV antibiotics. White c ount remained normal during the hospitalization. Temperature curve normalized. The patient will be continued on Levaquin at transfer with continued respiratory treatments and Advair. 3. The patient with some evidence of bronchospasm, responded well to addition of Advair in addition to her Albuterol. 4. UTI. The patient with positive urine culture, bacteria sensitive to the IV antibiotics. 5. Pelvic mass. The patient with evidence of pelvic mass on CT scan seen in [facility] consultation by Dr Vignesh Hernandez. CA-125 came back within normal range. Recommendation was continued monitoring with a foll owup ultrasound, with a CA-125 in 6 weeks x2, then q.3 to 6 months with [facility] followup. 6. Elevated LFTs, stable during hospitalization, will be continued to monitor as an outpatient. 7. Right hip pain, felt most likely related to bursitis, responded to analgesics and physical thera py. She will continue physical therapy at time of transfer. DISPOSITION: I transferred the patient to [facility]. CONDITION: Good. MEDICATIONS: 1. Advair 250/50 one inhalation b.i.d. 2. Albuterol via HHN q.4 hours while awake. 3. [place] 5/325 one q.4 hours p.r.n. severe pain. 4. Colace 100 mg daily. 5. MiraLax 17 grams p.o. daily p.r.n. 6. Lovenox 30 mg subq daily. 7. Lipitor 40 mg daily. 8. Norvasc 10 mg daily. 9. Aspirin 81 mg daily. 10. Losartan 50 mg daily. FOLLOWUP: With me as arranged with Dr. Hernandez in approximately 6 weeks. Dictated By: TERRI RODRIGUEZ/CONCEPCION Conf#: [id number] DID#: [id number]
== END 2016-12-19 16:06 | DRG 871 ==
LOC: E/R 12:52 → MS4 19:14 → PP2 12-18 18:37
PROVIDERS: ADMIT Internal Medicine; ATTEND Internal Medicine
DX: A41.9 Sepsis, unspecified organism (principal); J18.9 Pneumonia, unspecified organism; N39.0 Urinary tract infection, site not specified; E11.9 Type 2 diabetes mellitus without complications; I10 Essential (primary) hypertension; B96.20 Unspecified Escherichia coli [E. coli] as the cause of diseases classified elsewhere; M54.41 Lumbago with sciatica, right side; M25.511 Pain in right shoulder; K21.9 Gastro-esophageal reflux disease without esophagitis; R73.03 Prediabetes; K59.00 Constipation, unspecified; R19.09 Other intra-abdominal and pelvic swelling, mass and lump; M70.71 Other bursitis of hip, right hip; J98.01 Acute bronchospasm
CPT/HCPCS: 36415; 71010; 74177; 80053; 80202; 81001; 81003; 83605; 84484; 85025; 85610; 85730; 86304; 87040; 87086; 93005; 94640; 94664; 96374; 96375; 97116; 97162; 97530; J0456; J0696; J1650; J2270; J2405; J3370; J7030; Q9967